=== PATIENT | female | born 1965 | race Caucasian/White ===

== ENCOUNTER 2016-06-04 07:49 | Emergency (ER) | payer MEDICAID, OTHER ==
[~2016-06-04] VITALS: Ht 147.3 cm; Wt 82.0 kg
[~2016-06-04 07:49] MED LIST: ACET-2128 PO; ATOR20TA PO; CALC-25 PO; CHOL20004 PO; MELO-58 PO; METF500T4 PO; OXYB15TA9 PO
[2016-06-04 08:34] LABS: INR 1.1; PROTHROMBIN TIME 11.1 sec
[2016-06-04 08:39] LABS: ALANINE AMINOTRANSFERASE 19 IU/L (13-61); ALBUMIN 3.2 g/dL (3.4-5.0); AMMONIA 21 uMol/L (<32); ANION GAP 8; CALCIUM 8.8 mg/dL (8.5-10.1); CARBON DIOXIDE 31 mEq/L (21-32); CHLORIDE 106 mEq/L (98-107); ETHANOL BLOOD < 10 mg/dL; INDEX HEMOLYSI 1 (1-3); INDEX ICTERIC 1 (1-4); INDEX LIPEMIC 1 (1-3); UREA NITROGEN BLOOD 16 mg/dL (7-21); eGFR > 60 mL/min (>60)
[2016-06-04 08:44] LABS: BASOPHILS % 2.1 % (0.0-2.0); EOSINOPHILS % 1.4 % (0.0-5.0); HEMATOCRIT. 40.3 % (36.0-48.0); HEMOGLOBIN. 13.3 g/dL (12.0-16.0); MEAN CORPUSCULAR HEMOGLOBIN 31.5 pg (28.0-32.0); MEAN CORPUSCULAR VOLUME 95.4 fL (81.0-99.0); MEAN PLATELET VOLUME 8.1 fl (7.4-10.4); MONOCYTES % 6.8 % (2.0-8.0); NEUTROPHILS % 51.7 % (40.0-76.0); PLATELET 242 x1000/uL (130-400); RED BLOOD CELL COUNT 4.23 mill/uL (4.2-5.4); RED CELL DISTRIBUTION WIDTH 14.3 % (11.6-14.6); WHITE BLOOD COUNT 4.6 x1000/uL (4.5-11.0)
[2016-06-04 08:47] LABS: CREATINE KINASE 36 IU/L (26-192)
[2016-06-04 09:02] LABS: HCG SCREEN NEGATIVE
[2016-06-04 09:10] LABS: CLARITY URINE CLEAR (CLEAR); COLOR URINE YELLOW (YELLOW); GLUCOSE URINE NEGATIVE (NEGATIVE); KETONES URINE NEGATIVE (NEGATIVE); LEUKOCYTE ESTERASE URINE TRACE (NEGATIVE); NITRITE URINE POSITIVE (NEGATIVE); OCCULT BLOOD URINE NEGATIVE (NEGATIVE); PH URINE 5.5 (4.5-8.0); PROTEIN URINE NEGATIVE (NEGATIVE); SPECIFIC GRAVITY URINE 1.022 (1.005-1.030); UROBILINOGEN URINE 0.2 E.U./dL (0.2-1.0)
[2016-06-04] MEDS ORDERED: CEFTRIAXONE 2 G PREMIX 50 ML IV ONE (09:15)
[2016-06-04 09:20] LABS: BACTERIA URINE 4+; RBC URINE NONE SEEN /hpf (0-2); SQUAMOUS EPITHELIAL CELL URINE FEW /lpf (RARE/1+)
[2016-06-04 09:21] LABS: *AMPHETAMINES SCREEN URINE NEGATIVE (NEGATIVE); *BARBITURATES SCREEN URINE NEGATIVE (NEGATIVE); *BENZODIAZEPINES SCREEN URINE NEGATIVE (NEGATIVE); *COCAINE SCREEN URINE NEGATIVE (NEGATIVE); CANNABINOID URINE SCREEN NEGATIVE (NEGATIVE); ECSTASY MDMA SCREEN URINE NEGATIVE (NEGATIVE); METHADONE URINE SCREEN NEGATIVE (NEGATIVE); OPIATES URINE SCREEN NEGATIVE (NEGATIVE); PHENCYCLIDINE URINE SCREEN NEGATIVE (NEGATIVE)
[2016-06-04] MEDS ORDERED: LEVETIRACETAM 500MG PREMIX 100 ML IV ONE (11:30)
[2016-06-04 17:28] VITALS: BP 90/76
== END 2016-06-04 17:42 | disposition short-term general hospital (02) ==
LOC: ER 08:25
DX: R56.9 Unspecified convulsions (principal); Q90.9 Down syndrome, unspecified; I10 Essential (primary) hypertension; N39.0 Urinary tract infection, site not specified; R79.1 Abnormal coagulation profile
CPT/HCPCS: 36415; 70450; 71010; 80053; 80305; 81001; 82140; 82550; 84443; 84703; 85025; 85610; 96365; 96367; 99285; G0482; J0696; J1953; Z7610